=== PATIENT | female | born 2005 | race Caucasian/White ===

== ENCOUNTER → 2023-03-20 | Outpatient (CLI) | payer BC, OTHER ==
--- NOTE | 2023-03-20 18:38 | Diagnostic Imaging Report ---
Indication: Right breast mass. Sonographic interrogation of the palpable abnormality upper inner right breast was performed. This corresponds to the 1:00 location, 3 to 4 cm from the nipple. No underlying abnormality is seen. No solid or cystic mass is detected. IMPRESSION: BI-RADS Category 1 No sonographic abnormality is detected. ACR BI-RADS Category 1: Negative. Result letter will be mailed to the patient. Note: At least 10% of breast cancer is not imaged by mammography. Dictated by: Dictated on workstation # [id number]
== END ==
LOC: RAD 13:58
PROVIDERS: ATTEND Nurse Practitioner Family
DX: N63.12 Unspecified lump in the right breast, upper inner quadrant (principal)
CPT/HCPCS: 76641